=== PATIENT | male | born 1945 | race Caucasian/White ===

== ENCOUNTER 2018-10-18 08:00 | Outpatient (CLI) | payer MEDICARE ==
[2018-10-18] MEDS ORDERED: GLIPIZIDE10 MG PO (13:06)
[2018-10-18] MEDS ORDERED: BAYER CHEWABLE81 MG PO (13:06)
[2018-10-18] MEDS ORDERED: LIPITOR40 MG PO (13:06)
[2018-10-18] MEDS ORDERED: KEPPRA1000 MG PO (13:06)
[2018-10-18] MEDS ORDERED: NORVASC10 MG PO (13:06)
[2018-10-18] MEDS ORDERED: CLARITIN 10 MG10 MG PO (13:07)
[2018-10-18] MEDS ORDERED: LISINOPRIL20 MG PO (13:07)
[2018-10-18] MEDS ORDERED: LEXAPRO10 MG PO (13:07)
[2018-10-18] MEDS ORDERED: LOPRESSOR25 MG PO (13:08)
[2018-10-18] MEDS ORDERED: GLUCOPHAGE1000 MG PO (13:08)
[2018-10-18] MEDS ORDERED: RANITIDINE HCL150 M1 PO (13:08)
[2018-10-18] MEDS ORDERED: VITAMIN B-121000 MCG PO (13:09)
[2018-10-19] MEDS ORDERED: ROCEPHIN 1 GM/D51 G1 IM (17:27)
[2018-10-21 09:59] VITALS: BMI 33.7
== END 2018-10-19 08:01 | disposition home or self-care (01) ==
LOC: D.OPS 08:00
PROVIDERS: ATTEND Family Medicine
DX: F03.90 Unspecified dementia, unspecified severity, without behavioral disturbance, psychotic disturbance, mood disturbance, and anxiety (principal); E86.0 Dehydration

== ENCOUNTER 2018-10-18 12:51 | Inpatient (IN) | payer MEDICARE ==
[~2018-10-18] VITALS: Ht 157.5 cm; Wt 84.1 kg
[2018-10-18] MEDS ORDERED: BAYER CHEWABLE81 MG PO (13:06)
[2018-10-18] MEDS ORDERED: GLIPIZIDE10 MG PO (13:06)
[2018-10-18] MEDS ORDERED: NORVASC10 MG PO (13:06)
[2018-10-18] MEDS ORDERED: KEPPRA1000 MG PO (13:06)
[2018-10-18] MEDS ORDERED: LIPITOR40 MG PO (13:06)
[2018-10-18] MEDS ORDERED: LEXAPRO10 MG PO (13:07)
[2018-10-18] MEDS ORDERED: LISINOPRIL20 MG PO (13:07)
[2018-10-18] MEDS ORDERED: CLARITIN 10 MG10 MG PO (13:07)
[2018-10-18] MEDS ORDERED: GLUCOPHAGE1000 MG PO (13:08)
[2018-10-18] MEDS ORDERED: LOPRESSOR25 MG PO (13:08)
[2018-10-18] MEDS ORDERED: RANITIDINE HCL150 M1 PO (13:08)
[2018-10-18] MEDS ORDERED: VITAMIN B-121000 MCG PO (13:09)
[2018-10-18 13:46] LABS: BASOPHILS 0.7 % (0-2); HEMATOCRIT 35.7 % (42.0-54.0); HEMOGLOBIN 11.5 g/dL (13.5-17.5); IMMATURE GRANULOCYTES 0.4 % (0-5); LYMPHOCYTES 38.3 % (15-50); MCH 29.3 pg (26.0-34.0); MCHC 32.2 g/dL (31.0-37.0); MCV 90.8 fL (80.0-100.0); MEAN PLATELET VOLUME 8.8 fL (7.4-10.4); MONOCYTES 9.4 % (2-11); NEUTROPHILS 47.2 % (40-80); RBC 3.93 10x6/uL (4.20-6.10); RDW 14.6 % (11.5-14.5); WBC 5.5 10x3/uL (4.8-10.8)
[2018-10-18 13:49] LABS: PLATELET COUNT 244 10x3/uL (130-400)
[2018-10-18 14:01] LABS: ALBUMIN 2.9 g/dL (3.4-5.0); ANION GAP 17.4 mmol/L (8-16); BILIRUBIN - TOTAL 0.17 mg/dL (0.2-1.3); CALCIUM 8.1 mg/dL (8.5-10.1); CARBON DIOXIDE 24.3 mmol/L (21.0-32.0); CREATININE - SERUM 1.5 mg/dL (0.6-1.3); POTASSIUM - SERUM 4.7 mmol/L (3.5-5.1); PROTEIN - SERUM 7.2 g/dL (6.4-8.2)
[2018-10-18 14:09] LABS: MAGNESIUM - SERUM 1.8 mg/dL (1.8-2.4); T4 THYROXINE 5.9 ug/dL (4.7-13.3); THYROID STIMULATING HORMONE 0.4 uIU/mL (0.36-3.74)
--- NOTE | 2018-10-18 14:10 | NUR ---
PT RESTING IN BED, RESPIRATIONS EVEN AND UNLABORED, NO SIGNS OF DISTRESS, WILL CONTINUE TO MONITOR.
[2018-10-18 14:54] LABS: CHOL - HDL RATIO 2.7 ratio (2.3-4.9); LDL-HDL RATIO 0.4 ratio (1.5-3.5)
--- NOTE | 2018-10-18 15:10 | NUR ---
PT RESTING IN BED, URINE SAMPLE REQUESTE, PT STATES HE CAN NOT ALWAYS GO WHEN HE WANTS TO, ENCOURAGED HIM TO TRY, WILL CONTINUE TO MONITOR.
--- NOTE | 2018-10-18 16:10 | NUR ---
PT ASSISTED TO STAND FOR URINE SAMPLE, WAS ASSISTED BACK TO BED, DENIES NEEDS, WILL CONTINUE TO MONITOR.
--- NOTE | 2018-10-18 17:10 | NUR ---
IV ESTABLISHED, PT CALM AND COOPERATIVE ON ER STRETCHER, DENIES NEEDS, WILL CONTINUE TO MONITOR.
[2018-10-18 17:12] LABS: UDS - AMPHET NEGATIVE QUAL (NEGATIVE); UDS - BARB NEGATIVE QUAL (NEGATIVE); UDS - BENZO NEGATIVE QUAL (NEGATIVE); UDS - COCAINE NEGATIVE QUAL (NEGATIVE); UDS - OPIATE NEGATIVE QUAL (NEGATIVE); UDS - PCP NEGATIVE QUAL (NEGATIVE); UDS - THC NEGATIVE QUAL (NEGATIVE)
[2018-10-18 17:40] LABS: APPEARANCE CLEAR (CLEAR); BILIRUBIN NEGATIVE (NEGATIVE); COLOR YELLOW (YELLOW); GLUCOSE NEGATIVE (NEGATIVE); KETONE NEGATIVE (NEGATIVE); NITRITE POSITIVE (NEGATIVE); PROTEIN TRACE mg/dL (NEGATIVE); UROBILINOGEN NORMAL (NORMAL)
[2018-10-18 17:41] LABS: BACTERIA MODERATE /hpf (NONE SEEN); RED CELLS - URINE 0-5 /hpf (0-5); WHITE CELLS - URINE 25-50 /hpf (0-5)
--- NOTE | 2018-10-18 18:10 | NUR ---
PT RESTING ON ER STRETCHER, RESPIRATIONS EVEN AND UNLABORED, NO SIGNS OF DISTRESS NOTED, WILL CONTINUE TO MONITOR.
--- NOTE | 2018-10-18 19:27 | NUR ---
PT REPORT CALLED TO ANDRY IN ICU - PT GOING TO ROOM 2318
[2018-10-18 20:10] VITALS: BP 156/80
--- NOTE | 2018-10-18 20:45 | NUR ---
PT RECEIVED TO UNIT VIA STRETCHER FROM ED WITH ER NURSE. PT TRANSFERRED TO ICU BED WITHOUT DIFFUCULTY. PT CLOTHES REMOVED AND PLACED IN BAG WITH SHOES AND PLACED IN GOWN. ANSWERS ORIENTATION QUESTIONS APPROPRIATLY WITH CONFUSION NOTED IN FURTHER CONVERSATION, SUCH SAYING THAT THIS IS THE STRANGEST DRUZE AFTER SAYING HE WAS AT [facility]. PT COMPLAINED OF BEING COLD WITH BLANKETS APPLIED AND THERMOSTAT RAISED FOR COMFORT. NO CONCERNS NOTED AT THIS TIME. WILL CONTINUE TO OBSERVE.
[2018-10-18 21:00] VITALS: BP 137/75
[2018-10-18 21:48] VITALS: BP 156/80; Ht 157.5 cm; Wt 84.1 kg
[2018-10-18 22:00] VITALS: BP 142/73
[2018-10-18 23:00] VITALS: BP 143/75
--- NOTE | 2018-10-18 23:54 | NUR ---
PT SPO2% DROPS AT TIMES AND RETURNS TO 90'S. PT SNORES AT TIMES OF DROP. PT PLACED ON N/C 2LPM. WILL CONTINUE TO OBSERVE.
[2018-10-19] VITALS (11 sets, daily range): BP systolic 113–133; BP diastolic 68–81
--- NOTE | 2018-10-19 03:09 | NUR ---
PT RESTING WITH EYES CLOSED AND CHEST RISING. EASILY AROUSED TO VERBAL STIMULI. REASSESSMENT COMPLETED. CALL LIGHT IN REACH. WILL CONTINUE TO OBSERVE.
[2018-10-19 04:55] LABS: ANION GAP 14.8 mmol/L (8-16); CALCIUM 7.4 mg/dL (8.5-10.1); CARBON DIOXIDE 23.1 mmol/L (21.0-32.0)
[2018-10-19 05:07] LABS: CREATININE - SERUM 1.1 mg/dL (0.6-1.3); POTASSIUM - SERUM 3.9 mmol/L (3.5-5.1)
--- NOTE | 2018-10-19 07:00 | NUR ---
PATIENT RESTING IN BED WITH CALL NUNEZ IN REACH. VSS. O2 AT 2 LITERS VIA NC. D5W INFUSING AT 125ML/HR VIA LEFT WRIST PIV. PATIENT WAKES TO VOICE. ORIENTED TO PERSON, YEAR, AND CITY. TURNED PATIENT WITH OFFGOING NURSE TO RIGHT SIDE. NO SKIN BREAK DOWN. SCRATCHES TO LEGS AND SCABS TO ARMS. WILL CONTINUE TO MONITOR.
--- NOTE | 2018-10-19 08:00 | NUR ---
SPOKE TO DR. KRAMER ON PHONE. OBTAINED ORDERS TO RESTART DAILY MEDICATION REGIMIN WHILE IN HOSPITAL.
--- NOTE | 2018-10-19 08:40 | NUR ---
SERVED PATIENT BREAKFAST AND ADMNISTERED MEDICATION. NO SWALLOWING DIFFICULTIES WITH PILLS.
--- NOTE | 2018-10-19 11:43 | NUR ---
PATIENT RESTING IN BED WITH STABLE VS. HAD LARGE INCONTINENT BM. NURSE CLEANED AND CHANGED LINENS. NO COMPLAINTS. WILL CONTINUE TO MONITOR.
--- NOTE | 2018-10-19 12:08 | NUR ---
SERVED LUNCH TRAY. VSS.
--- NOTE | 2018-10-19 15:25 | NUR ---
FAMILY CAME TO SEE PATIENT. SPOKE TO ME ABOUT THEIR REQUEST FOR PATIENT TO GO TO [facility] AFTER DISCHARGE. CORRESPONDENCE COORDINATOR NEHA NOTIFIED.
[2018-10-19] MEDS ORDERED: ROCEPHIN 1 GM/D51 G1 IM (17:27)
--- NOTE | 2018-10-19 17:30 | NUR ---
DR. KRAMER CAME TO SEE PATIENT. NO ADDITIONAL ORDERS GIVEN. WE ARE DISCHARGING FROM ICU AND MOVING TO [facility]. CALLED AND GAVE REPORT TO RECEIVING NURSE.
--- NOTE | 2018-10-19 17:55 | MORECARE ---
CASE MANAGEMENT DISCHARGE SUMMARY PATIENT: BURKE GILL UNIT: [id number] ADM DATE: 10/19/18 AGE: 72 : 47 SEX: M ROOM/BED: D.2312 AUTHOR: ANAHI SALGUERO PHYSICIAN: REFERRING PHYSICIAN: JOHNNIE KRAMER MD DATE OF SERVICE: 10/19/18 Discharge Plan Patient Name: BURKE GILL Facility: [facility]:[place] : 1945 Planned Disposition: Nursing Facility [facility] Anticipated Discharge Date: Discharge Date: Expected LOS: Initial Reviewer: [email or web address] Initial Review Date: 10/18/2018 Generated: 10/19/18 6:55 pm Patient Name: BURKE GILL Page [id number] at 1754 All edits/amendments must be made on the electronic document DICTATION DATE: 10/19/181754 GENETICS NURSE: CIRO 10/19/181754 RPT#: [id number] DC DATE: STATUS: ADM IN [facility] [address] [place] [address] END OF REPORT
--- NOTE | 2018-10-19 18:01 | NUR ---
TRANSFERRED PATIENT TO SNF AND HANDED OFF TO NURSE.
--- NOTE | 2018-10-19 18:02 | MORECARE ---
CASE MANAGEMENT DISCHARGE SUMMARY PATIENT: BURKE GILL UNIT: [id number] ADM DATE: 10/19/18 AGE: 72 : 47 SEX: M ROOM/BED: D.2312 AUTHOR: ANAHI SALGUERO PHYSICIAN: REFERRING PHYSICIAN: JOHNNIE KRAMER MD DATE OF SERVICE: 10/19/18 Discharge Plan Patient Name: BURKE GILL Facility: [facility]:[place] : 1945 Planned Disposition: Nursing Facility [facility] Cert Anticipated Discharge Date: Discharge Date: Expected LOS: Initial Reviewer: [email or web address] Initial Review Date: 10/18/2018 Generated: 10/19/18 7:02 pm DCPIA - Discharge Planning Initial Assessment Updated by [email or web address]: Rox Ruiz on 10/19/18 5:58 pm * Is the patient Alert and Oriented? No * Preadmission Environment Care Home Facility * Facility Name [facility] [phone] * ADLs Partial Dependent * Partial ADLs (Assistance needed) Ambulation Bathing Dressing Eating Medication Management Toileting Transfers * List name and contact numbers for known caregivers / representatives who currently or will assist patient after discharge: BARBARA PASTOR [facility]- [phone] FERNANDO LOMELI [facility] [phone] * Verbal permission to speak to the caregivers and representatives has been obtained from the patient. N/A * Community resources currently utilized None * Additional services required to return to the preadmission environment? No * Can the patient safely return to the preadmission environment? Yes * Has this patient been hospitalized within the prior 30 days at any hospital? Yes Last DP export: 10/19/18 4:55 pm Patient Name: BURKE GILL Page [id number] at 1802 All edits/amendments must be made on the electronic document DICTATION DATE: 10/19/181801 AUTOMOTIVE MANAGER: CIRO 10/19/181801 RPT#: [id number] DC DATE: STATUS: ADM IN [facility] [address] [place] [address] END OF REPORT
--- NOTE | 2018-10-19 18:15 | MORECARE ---
CASE MANAGEMENT DISCHARGE SUMMARY PATIENT: BURKE GILL UNIT: [id number] ADM DATE: 10/19/18 AGE: 72 : 47 SEX: M ROOM/BED: D.2312 AUTHOR: NOEMY,DOC PHYSICIAN: REFERRING PHYSICIAN: JOHNNIE KRAMER MD DATE OF SERVICE: 10/19/18 Discharge Plan Patient Name: BURKE GILL Facility: [facility]:[place] : 1945 Planned Disposition: Nursing Facility [facility] Cert Anticipated Discharge Date: Discharge Date: 10/19/2018 Expected LOS: Initial Reviewer: [email or web address] Initial Review Date: 10/18/2018 Generated: 10/19/18 7:15 pm DCP- Discharge Planning Updated by [email or web address]: Rox Ruiz on 10/19/18 5:[address] Patient Name: BURKE GILL Admission Status: ER Accout number: [id number] Admission Date: 10-19-2018 : 1945 Admission Diagnosis: Attending: JOHNNIE KRAMER Current LOS: 1 Anticipated DC Date: Planned Disposition: Nursing Facility [facility] Cert Primary Insurance: MEDICARE A & B Discharge Planning Comments: CM received call from Barbara Pastor patients POA [phone]. She stated that the patient will not be able to return to [facility] when discharged. Barbara stated that the family was checking into other facilities for pants busheler care. CM called [facility] to verify information. CM spoke with Cara @ [facility] she stated that patient was refusing to do therapy and they didn't have any long-term beds available. CM attempted to get history from Cara she stated that he has only been with them since 10/08/18 and had came to them post admission from [facility]. CM awaiting psych consult to fill out [facility] paperwork. CM will work on placement for long-term NH placement. CM will continue to follow and assist as needed with discharge planning / needs. Manager Universal: Rox Ruiz DCPIA - Discharge Planning Initial Assessment Updated by [email or web address]: Rox Ruiz on 10/19/18 5:58 pm * Is the patient Alert and Oriented? No * Preadmission Environment Snf Facility * Facility Name [facility] [phone] * ADLs Partial Dependent * Partial ADLs (Assistance needed) Ambulation Bathing Dressing Eating Medication Management Toileting Transfers * List name and contact numbers for known caregivers / representatives who currently or will assist patient after discharge: BARBARA PASTOR - POA- [phone] FERNANDO LOMELI - [facility]- [phone] * Verbal permission to speak to the caregivers and representatives has been obtained from the patient. N/A * Community resources currently utilized None * Additional services required to return to the preadmission environment? No * Can the patient safely return to the preadmission environment? Yes * Has this patient been hospitalized within the prior 30 days at any hospital? Yes Last DP export: 10/19/18 5:02 pm Patient Name: BURKE GILL Page [phone] at 1815 All edits/amendments must be made on the electronic document DICTATION DATE: 10/19/181813 PRINCIPAL SOFTWARE ENGINEER: CIRO 10/19/181813 RPT#: [id number] DC DATE:10/19/18 STATUS: DIS IN [facility] [address] [place] [address] END OF REPORT
--- NOTE | 2018-10-19 18:29 | MORECARE ---
CASE MANAGEMENT DISCHARGE SUMMARY PATIENT: BURKE GILL UNIT: [id number] ADM DATE: 10/19/18 AGE: 72 : 47 SEX: M ROOM/BED: D.2312 AUTHOR: NOEMY,DOC PHYSICIAN: REFERRING PHYSICIAN: JOHNNIE KRAMER MD DATE OF SERVICE: 10/19/18 Discharge Plan Patient Name: BURKE GILL Facility: [facility]:[place] : 1945 Planned Disposition: Nursing Facility [facility] Cert Anticipated Discharge Date: Discharge Date: 10/19/2018 Expected LOS: Initial Reviewer: [email or web address] Initial Review Date: 10/18/2018 Generated: 10/19/18 7:29 pm Comments DCP- Discharge Planning Updated by [email or web address]: Rox Ruiz on 10/19/18 5:[address] Patient Name: BURKE GILL Admission Status: ER Accout number: [id number] Admission Date: 10-19-2018 : 1945 Admission Diagnosis: Attending: JOHNNIE KRAMER Current LOS: 1 Anticipated DC Date: Planned Disposition: Nursing Facility [facility] Cert Primary Insurance: MEDICARE A & B Discharge Planning Comments: CM received call from Barbara Pastor patients POA [phone]. She stated that the patient will not be able to return to [facility] when discharged. Barbara stated that the family was checking into other facilities for terminal operator care. CM called [facility] to verify information. CM spoke with Cara @ [facility] she stated that patient was refusing to do therapy and they didn't have any long-term beds available. CM attempted to get history from Cara she stated that he has only been with them since 10/08/18 and had came to them post admission from [facility]. CM awaiting psych consult to fill out [facility] paperwork. CM will work on placement for long-term NH placement. CM will continue to follow and assist as needed with discharge planning / needs. Radiation Therapy Technologist: Rox Ruiz DCPIA - Discharge Planning Initial Assessment Updated by [email or web address]: Rox Ruiz on 10/19/18 5:58 pm * Is the patient Alert and Oriented? No * Preadmission Environment Longterm Facility * Facility Name [facility] [phone] * ADLs Partial Dependent * Partial ADLs (Assistance needed) Ambulation Bathing Dressing Eating Medication Management Toileting Transfers * List name and contact numbers for known caregivers / representatives who currently or will assist patient after discharge: BARBARA PASTOR - POA- [phone] FERNANDO LOMELI - [facility]- [phone] * Verbal permission to speak to the caregivers and representatives has been obtained from the patient. N/A * Community resources currently utilized None * Additional services required to return to the preadmission environment? No * Can the patient safely return to the preadmission environment? Yes * Has this patient been hospitalized within the prior 30 days at any hospital? Yes Last DP export: 10/19/18 5:15 pm Patient Name: BURKE GILL Page 48199 at 1829 All edits/amendments must be made on the electronic document DICTATION DATE: 10/19/181827 DIGESTER: CIRO 10/19/181827 RPT#: [id number] DC DATE:10/19/18 STATUS: DIS IN [facility] [address] [place] [address] END OF REPORT
--- NOTE | 2018-10-20 09:49 | MORECARE ---
CASE MANAGEMENT DISCHARGE SUMMARY PATIENT: BURKE GILL UNIT: [id number] ADM DATE: 10/19/18 AGE: 72 : 47 SEX: M ROOM/BED: D.2312 AUTHOR: NOEMY,DOC PHYSICIAN: REFERRING PHYSICIAN: JOHNNIE KRAMER MD DATE OF SERVICE: 10/20/18 Discharge Plan Patient Name: BURKE GILL Facility: [facility]:[place] : 1945 Planned Disposition: Nursing Facility [facility] Cert Anticipated Discharge Date: Discharge Date: 10/19/2018 Expected LOS: Initial Reviewer: [email or web address] Initial Review Date: 10/18/2018 Generated: 10/20/18 10:49 am Comments DCP- Discharge Planning Updated by [email or web address]: Rox Ruiz on 10/19/18 5:[address] Patient Name: BURKE GILL Admission Status: ER Accout number: [id number] Admission Date: 10-19-2018 : 1945 Admission Diagnosis: Attending: JOHNNIE KRAMER Current LOS: 1 Anticipated DC Date: Planned Disposition: Nursing Facility [facility] Cert Primary Insurance: MEDICARE A & B Discharge Planning Comments: CM received call from Barbara Pastor patients POA [phone]. She stated that the patient will not be able to return to [facility] when discharged. Barbara stated that the family was checking into other facilities for ad terminal makeup operator care. CM called [facility] to verify information. CM spoke with Cara @ [facility] she stated that patient was refusing to do therapy and they didn't have any long-term beds available. CM attempted to get history from Cara she stated that he has only been with them since 10/08/18 and had came to them post admission from [facility]. CM awaiting psych consult to fill out [facility] paperwork. CM will work on placement for long-term NH placement. CM will continue to follow and assist as needed with discharge planning / needs. Parks Recreation Director: Rox Ruiz DCPIA - Discharge Planning Initial Assessment Updated by [email or web address]: Rox Ruiz on 10/19/18 5:58 pm * Is the patient Alert and Oriented? No * Preadmission Environment Retirement Facility * Facility Name [facility] [phone] * ADLs Partial Dependent * Partial ADLs (Assistance needed) Ambulation Bathing Dressing Eating Medication Management Toileting Transfers * List name and contact numbers for known caregivers / representatives who currently or will assist patient after discharge: BARBARA PASTOR - POA- [phone] FERNANDO LOMELI - [facility]- [phone] * Verbal permission to speak to the caregivers and representatives has been obtained from the patient. N/A * Community resources currently utilized None * Additional services required to return to the preadmission environment? No * Can the patient safely return to the preadmission environment? Yes * Has this patient been hospitalized within the prior 30 days at any hospital? Yes Last DP export: 10/19/18 5:29 pm Patient Name: BURKE GILL Page 31696 at 0949 All edits/amendments must be made on the electronic document DICTATION DATE: 10/20/18948 REGIONAL CONTROLLER: CIRO 10/20/18948 RPT#: [id number] DC DATE:10/19/18 STATUS: DIS IN [facility] [address] [place] [address] END OF REPORT
== END 2018-10-19 18:01 | disposition short-term general hospital (02) | DRG 690 ==
LOC: D.ER 12:51 → D.EDHOLD 17:36 → D.ICU 17:36 → OBSVTIME 17:45 → D.ICU 18:27
PROVIDERS: Emergency Medicine; ADMIT Family Medicine; ATTEND Family Medicine
DX: N39.0 Urinary tract infection, site not specified (principal); R45.851 Suicidal ideations; I69.354 Hemiplegia and hemiparesis following cerebral infarction affecting left non-dominant side; E86.0 Dehydration; D64.9 Anemia, unspecified; I10 Essential (primary) hypertension; E11.9 Type 2 diabetes mellitus without complications; E78.5 Hyperlipidemia, unspecified; I25.10 Atherosclerotic heart disease of native coronary artery without angina pectoris; E66.9 Obesity, unspecified; G40.909 Epilepsy, unspecified, not intractable, without status epilepticus; K21.9 Gastro-esophageal reflux disease without esophagitis; E53.8 Deficiency of other specified B group vitamins; F32.9 Major depressive disorder, single episode, unspecified; F03.90 Unspecified dementia, unspecified severity, without behavioral disturbance, psychotic disturbance, mood disturbance, and anxiety; E73.9 Lactose intolerance, unspecified; N40.0 Benign prostatic hyperplasia without lower urinary tract symptoms

== ENCOUNTER → 2018-10-19 17:53 | Outpatient (CLI) | payer MEDICARE ==
[~2018-10-19 17:53] MED LIST: ALBUTEROL1.25 MG/3 UPD; BAYER CHEWABLE81 MG PO; CLARITIN 10 MG10 MG PO; GLIPIZIDE10 MG PO; GLUCOPHAGE1000 MG PO; KEPPRA1000 MG PO; LEXAPRO10 MG PO; LEXAPRO20 MG PO; LIPITOR40 MG PO; LISINOPRIL20 MG PO; LOPRESSOR25 MG PO; NAMENDA5 MG PO; NORVASC10 MG PO; RANITIDINE HCL150 M1 PO; ROCEPHIN 1 GM/D51 G1 IM; TAMIFLU75 MG PO; VITAMIN B-121000 MCG PO
[2018-10-21 09:59] VITALS: BMI 33.7
== END | disposition other institution (70) ==
LOC: D.OPS 10-18 12:51
PROVIDERS: ATTEND Family Medicine
DX: F03.90 Unspecified dementia, unspecified severity, without behavioral disturbance, psychotic disturbance, mood disturbance, and anxiety (principal); E86.0 Dehydration

== ENCOUNTER 2018-10-19 20:00 | Inpatient (IN) | payer MEDICARE ==
[~2018-10-19] VITALS: Ht 167.6 cm; Wt 83.6 kg
[~2018-10-19 20:00] MED LIST changes: -ALBUTEROL1.25 MG/3 UPD; -LEXAPRO20 MG PO; -NAMENDA5 MG PO; -TAMIFLU75 MG PO
--- NOTE | 2018-10-20 00:47 | NUR ---
RECEIVED IN PATIENT ROOM. RESTING IN BED WITH EYES CLOSED. RESPONDS TO VOICE. CALM WITH CARE AND ASSESSMENT. DENIES THOUGHTS OF SELF HARM. REDIRECT AND REORIENT NEEDED. RESTING IN BED WITH EYES CLOSED AT THIS TIME. CONTINUE PLAN OF CARE.
[2018-10-20 06:10] VITALS: BP 116/65; BMI 33.9
--- NOTE | 2018-10-20 07:30 | NUR ---
REC'D PT IN BED RESTING. RESPONDS TO VERBAL STIMULI. ALERT AND ORIENTED X 2. CALM AND COOPERATIVE WITH ASSESSMENT. PRESCRIBED MEDS PROVIDED. MED COMPLIANT. FALL PRECAUTIONS IN PLACE. PT DENIES ANY THOUGHTS OF SELF HARM. WILL CONTINUE TO MONITOR Q 15 MINUTES FOR SAFETY. WILL CPOC.
[2018-10-20 07:51] LABS: BASOPHILS 0.5 % (0-2); HEMATOCRIT 35.9 % (42.0-54.0); HEMOGLOBIN 11.5 g/dL (13.5-17.5); IMMATURE GRANULOCYTES 0.3 % (0-5); LYMPHOCYTES 27.2 % (15-50); MCV 90.4 fL (80.0-100.0); MEAN PLATELET VOLUME 8.9 fL (7.4-10.4); MONOCYTES 10.5 % (2-11); NEUTROPHILS 57.5 % (40-80); PLATELET COUNT 242 10x3/uL (130-400); RBC 3.97 10x6/uL (4.20-6.10); RDW 14.3 % (11.5-14.5)
[2018-10-20 08:07] LABS: ALBUMIN 2.8 g/dL (3.4-5.0); BILIRUBIN - TOTAL 0.23 mg/dL (0.2-1.3); CALCIUM 7.7 mg/dL (8.5-10.1); CARBON DIOXIDE 23.7 mmol/L (21.0-32.0); CHOL - HDL RATIO 2.4 ratio (2.3-4.9); CREATININE - SERUM 1.1 mg/dL (0.6-1.3); LDL-HDL RATIO 0.6 ratio (1.5-3.5); PROTEIN - SERUM 7.2 g/dL (6.4-8.2); THYROID STIMULATING HORMONE 0.69 uIU/mL (0.36-3.74)
[2018-10-20 08:09] LABS: ANION GAP 15.8 mmol/L (8-16); POTASSIUM - SERUM 4.5 mmol/L (3.5-5.1)
[2018-10-20 08:23] VITALS: BP 130/75
[2018-10-20 13:58] VITALS: BMI 33.8
[2018-10-20 19:50] VITALS: BP 127/82
--- NOTE | 2018-10-21 00:47 | NUR ---
B) Patient is alert and oriented to person and place, follows instruction, I)Administered scheduled medications as ordered, monitored FSBS, assisted with needs, R) Medication compliant, cooperative P) Continue plan of care.
[2018-10-21 07:30] LABS: RAPID PLASMA REAGIN Non Reactive (Non Reactive); VITAMIN D 25 HYDROXY 25.8 ng/mL (30.0-100.0)
[2018-10-21 09:20] LABS: FOLATE (FOLIC ACID) - SERUM 19.8 ng/mL (>3.0)
[2018-10-21 09:59] VITALS: Ht 167.6 cm; Wt 83.6 kg
--- NOTE | 2018-10-21 13:04 | PSY ---
PATIENT NAME:BURKE GILL MEDICAL RECORD: [id number] : [birth year] LOCATION:[facility] ADMISSION DATE: 10/19/18 ACCOUNT: [id number] PSYCHIATRIC EVALUATION DATE OF EVALUATION: 10/20/18 IDENTIFYING DATA: The patient is 72 years old and he is admitted to the hospital on a voluntary basis. CHIEF COMPLAINT: Suicidal thoughts. HISTORY OF PRESENT ILLNESS: The patient clearly has a history of dementia and has been admitted to the [facility] for rehabilitative services. He apparently had a stroke or intraparenchymal bleed without a midline shift about 6 weeks ago. He has had two cerebrovascular events and does have some left-sided weakness. While at the half-way, he told his physical therapist that he wanted to kill himself. He repeated those thoughts when brought to the hospital, but now says he does not want to kill himself. He is endorsing numerous neurovegetative depressive symptoms. He also has clear evidence of some confusion. PAST MEDICAL HISTORY: Significant for stroke, diabetes, hypertension, coronary artery disease, and hyperlipidemia. PAST PSYCHIATRIC HISTORY: Significant for depression and a previous suicide attempt 5 years ago when he held a knife to his throat and threatened to cut his throat while at some sort of a [employer] democrat. He had been drinking at that time. ALLERGIES: No known drug allergies. CURRENT MEDICATIONS: Include Norvasc, aspirin, Lipitor, Glucotrol, Keppra, Lexapro, lisinopril, Claritin, Glucophage, Lopressor, ranitidine, and vitamin B12. FAMILY HISTORY: Noncontributory. SOCIAL HISTORY: The patient is . He does have adult children who live out of state. He did graduate from high school and had several episodes of vocational training in which he partially completed some of the training. He is a nonsmoker. He has not drank any in recent months or years and has never been a recreational drug user. 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 MENTAL STATUS EXAMINATION: The patient is awake, alert, and oriented to person and place, but only partially to time and situation. His mood is depressed. His affect is constricted. Thought processes are circumstantial. Memory, concentration, and abstraction abilities are moderately impaired and he denies any active intent to harm himself or others as well as active psychotic symptoms. ASSETS: Stable living environment. LIABILITIES: Limited insight. DIAGNOSTIC IMPRESSION: AXIS I: Vascular dementia and major depression, moderate severity without psychotic features. AXIS II: Deferred. AXIS III: History of stroke, seizure disorder, diabetes, hypertension, hyperlipidemia, diabetes, anemia, and benign prostatic hypertrophy. AXIS IV: Moderate. AXIS V: Global assessment of functioning is 35. PLAN: At this time, the patient is admitted to the hospital secondary to confusion and depressive symptoms with suicidal statements. He will be comprehensively evaluated from both medical, psychological, and social standpoint. He will be treated with both mood stabilizing and memory enhancing medications. His long-term prognosis is guarded. TRANSINT:[id number] Voice Confirmation ID: [id number] DOCUMENT ID: [id number] VALENTE OLIVARES MD at 1304 CC: [id number] DICTATION DATE: 10/20/18 1529 BLOCK AND CASE MAKER: 10/20/181957 [facility] IN [place] [address] [place] [address]
--- NOTE | 2018-10-21 16:43 | NUR ---
IS ORIENTED WITH SOME CONFUSION PRESENT.DENIES WANTING TO HARM SELF NOW.STATES' in the last 10 years we had a democrat at my house and they were not paying any attention to me and so i went into the kitchen and got a knife and threatened to kill myself".compliant with staff with staff and meds.will continue with plan of care,monitor for changes and safety.
[2018-10-21 19:56] VITALS: BP 126/57
--- NOTE | 2018-10-22 04:27 | NUR ---
B) Patient is alert and oriented to person, calm and cooperative this shift, I) Administered scheduled medications as ordered, monitored for safety, R) Mediation compliant, pleasant and friendly toward staff, P) Continue plan of care.
--- NOTE | 2018-10-22 10:27 | NUR ---
RECEIVED PATIENT IN DINING ROOM FOR B'FAST, ALERT, CALM, COOPERATIVE, QUIET. MEDS ADMIN PER ORDERS WITH COMPLETE MED COMPLIANCE NOTED. COOPERATIVE WITH GROUP AND STAFF REQUESTS. CONT POC INCLUDING MEDS AND GROUP THERAPY DIRECTED
[2018-10-22 10:37] VITALS: BP 132/75
--- NOTE | 2018-10-22 11:00 | NUR ---
The patient's POA called and asked about how he is doing. She also stated "He is supposed to be going in to plate inspector care and the social services counselor is supposed to call me, but I have been in and out of cell phone service areas, but if anyone needs me, please call." Let the POA know that the patient is quiet he did get agitated with staff because he does not like being asked "Where are you going?" Explained to the POA that we have them in our view so that no one falls. She verbalized understanding.
--- NOTE | 2018-10-22 13:49 | PN ---
PATIENT:BURKE GILL MEDICAL RECORD: [id number] LOCATION:[facility] ADMISSION DATE: 10/19/18 PROGRESS NOTE DATE OF SERVICE: 10/21/2018 SUBJECTIVE: The patient's case was discussed with staff. He has no new complaint. OBJECTIVE: The patient denies intent to harm himself or others. He generally tolerates his medicines well. Eye contact is fair. Concentration is fair. ASSESSMENT: No change in diagnoses. PLAN: Current medicines have been reviewed and will be maintained. Long-term prognosis is guarded. I am going to start him on Namenda for its memory enhancing properties. TRANSINT:[id number] Voice Confirmation ID: [id number] DOCUMENT ID: [id number] VALENTE OLIVARES MD at 1349 CC: [id number] DICTATION DATE: 10/21/18 1604 SUPERVISOR ROSE GRADING: 10/21/18 2322 ADM IN [place] [id number] [place] [id number]
[2018-10-22 20:15] VITALS: BP 140/79
--- NOTE | 2018-10-22 20:56 | NUR ---
PATIENT HAS A FLAT AFFECT, KEEPS TO HIMSELF, DENIES S/I. COMPLIANT WITH MEDS, NO ADVERSE REACTION NOTED. ABLE TO MAKE NEEDS KNOWN, WILL FOLLOW POC
--- NOTE | 2018-10-23 07:30 | NUR ---
PT IS ALERT AND ORIENTED TO PERSON AND PLACE. CALM AND COOPERATIVE WITH ASSESSMENT. NO SI NOTED OR VOICED. PT IS GUARDED AT TIMES. PRESCRIBED MEDS PROVIDED. MED COMPLIANT. FALL PRECAUTIONS IN PLACE. REDIRECT AND REORIENT NEEDED. WILL CONTINUE TO MONITOR Q 15 MINUTES FOR SAFETY. WILL CPOC.
[2018-10-23 08:12] VITALS: BP 118/76
--- NOTE | 2018-10-23 08:39 | PN ---
PATIENT:BURKE GILL MEDICAL RECORD: [id number] LOCATION:[facility] ADMISSION DATE: 10/19/18 PROGRESS NOTE DATE OF SERVICE: 10/22/2018 SUBJECTIVE: The patient's case was discussed with staff. He has no new complaint. OBJECTIVE: The patient is in good behavioral control. He has no thoughts of harming himself or others. He is going to be referred to a local longterm. His long-term prognosis is guarded. TRANSINT:[id number] Voice Confirmation ID: [id number] DOCUMENT ID: [id number] VLAENTE OLIVARES MD at 0839 CC: [id number] DICTATION DATE: 10/22/18 1555 SHEET ROCK INSTALLER: 10/22/18 2217 ADM IN [place] [id number] [place] [id number]
--- NOTE | 2018-10-23 19:58 | NUR ---
PATIENT IS QUIET, FLAT, APPEARS SADDENED, VERY LITTLE MOTIVATION, ENCOURAGING WORDS ARE GIVEN TO PATIENT, COMPLIANT WITH MEDS, NO ADVERSE REACTION NOTED. WILL FOLLOW POC
[2018-10-23 20:04] VITALS: BP 137/78
--- NOTE | 2018-10-24 07:45 | NUR ---
REC'D PT SITTING IN W/C IN HALLWAY BY NURSES STATION WITH PEERS. PT DENIES ANY FEELINGS OR THOUGHTS OF SELF HARM AT THIS TIMES. PT GETS UPSET EASILY WHEN HAS INCONT. EPISODES AT TIMES. EXPLAINED TO PT ITS OKAY THAT IS WHAT THE STAFF IS HERE FOR TO ASSIST HIM. CALM AND COOPERATIVE WITH ASSESSMENT. REDIRECT AND REORIENT NEEDED. PRESCRIBED MEDS PROVIDED. MED COMPLIANT. FALL PRECAUTIONS IN PLACE. WILL CONTINUE TO MONITOR Q 15 MINUTES FOR SAFETY. WILL CPOC.
[2018-10-24 08:00] VITALS: BP 129/75
--- NOTE | 2018-10-24 11:37 | PN ---
PATIENT:BURKE GILL MEDICAL RECORD: [id number] LOCATION:[facility] ADMISSION DATE: 10/19/18 PROGRESS NOTE DATE OF SERVICE: 10/23/2018 SUBJECTIVE: The patient's case was discussed with staff. He has no new complaint. OBJECTIVE: The patient is in good behavioral control with poor insight about his condition. He does tolerate his medicines well. ASSESSMENT: No change in diagnoses. PLAN: Supportive and educational interventions were made. Long-term prognosis is guarded. TRANSINT:[id number] Voice Confirmation ID: [id number] DOCUMENT ID: [id number] VALENTE OLIVARES MD at 1137 CC: [id number] DICTATION DATE: 10/23/18 0846 CIGARETTE SELLER: 10/23/18 0859 ADM IN [place] [id number]
[2018-10-24 19:28] VITALS: BP 124/68
--- NOTE | 2018-10-24 23:01 | NUR ---
RECEIVED IN DAYROOM. SETTING IN A CHAIR WITH PEERS BY HIS SIDE, SOCIALIZING AT TIMES. CALM AND COOPERATIVE WITH CARE AND ASSESSMENT. DENIES THOUGHTS OF SELF HARM. ENCOURAGE TO EXPRESS NEEDS. CONTINUES TO RELAX IN CHAIR. CONTINUE PLAN OF CARE
--- NOTE | 2018-10-25 07:30 | NUR ---
REC'D PT IN HALLWAY SITTING IN W/C. PT IS CALM AND COOPERATIVE WITH ASSESSMENT. PT DENIES ANY THOUGHTS OR FEELINGS OF SELF HARM AT THIS TIME. REDIRECT AND REORIENT NEEDED. PRESCRIBED MEDS PROVIDED. MED COMPLIANT. FALL PRECAUTIONS IN PLACE. WILL CONTINUE TO MONITOR Q 15 MINUTES FOR SAFETY. WILL CPOC.
--- NOTE | 2018-10-25 13:45 | NUR ---
Nutrition Follow Up: Chart reviewed Diet: ADA PO Intake: 69% meal avg BM: 10/25/18 Meds and labs reviewed Rec continue current diet. RD following.
--- NOTE | 2018-10-25 15:58 | PN ---
PATIENT:BURKE GILL MEDICAL RECORD: [id number] LOCATION:[facility] ADMISSION DATE: 10/19/18 PROGRESS NOTE DATE OF SERVICE: 10/24/2018 SUBJECTIVE: The patient's case was discussed with staff. He has no new complaint. OBJECTIVE: The patient is in good behavioral control with poor insight about his condition. He generally tolerates his medicines well. ASSESSMENT: 1. Vascular dementia. 2. Major depression. PLAN: The patient's Lexapro is going to be increased to 20 mg daily. His long-term prognosis is guarded. It is clear that he is going to require 12-ggpy-e-day supervision. TRANSINT:[id number] Voice Confirmation ID: [id number] DOCUMENT ID: [id number] VALENTE OLIVARES MD at 1558 CC: [id number] DICTATION DATE: 10/24/18 1156 KITCHEN PORTER: 10/24/18 1244 ADM IN [place] [id number] [place] [address]
[2018-10-25 20:54] VITALS: BP 142/78
--- NOTE | 2018-10-25 22:01 | NUR ---
RECEIVED IN DAYROOM. SITTING QUIETLY IN CHAIR AND WATCHING TV. CALM AND COOPERATIVE WITH CARE AND ASSESSMENT. DENIES THOUGHTS OF SELF HARM. REDIRECT AND REORIENT NEEDED. GETTING READY FOR BED AT THIS TIME. CONTINUE PLAN OF CARE.
[2018-10-26 08:30] VITALS: BP 134/79
--- NOTE | 2018-10-26 10:00 | NUR ---
RECEIVED PATIENT IN DINING ROOM FOR B'FAST, ALERT, CALM, COOPERATIVE WITH CARE, NO AGGRESSION NOTED. MEDS ADMIN PER ORDERS WITH COMPLETE MED COMPLIANCE NOTED. COOPERATIVE WITH GROUP ACTIVITIES AND CARE. CONT POC INCLUDING MEDS AND GROUP THEAPY DIRECTED.
--- NOTE | 2018-10-26 12:58 | PN ---
PATIENT:BURKE GILL MEDICAL RECORD: [id number] LOCATION:[facility] ADMISSION DATE: 10/19/18 PROGRESS NOTE DATE OF SERVICE: 10/25/2018 SUBJECTIVE: The patient's case was discussed with staff. He has no new complaint. OBJECTIVE: The patient denies intent to harm himself or others. He generally tolerates his medicines well. Eye contact is fair. ASSESSMENT: No change in diagnoses. PLAN: Brief supportive and educational interventions were made. The patient will be maintained on current medicines. TRANSINT:[id number] Voice Confirmation ID: [id number] DOCUMENT ID: [id number] VALENTE OLIVARES MD at 1258 CC: [id number] DICTATION DATE: 10/25/18 1630 TRACK INSPECTOR: 10/25/18 1901 ADM IN [facility] [address] [place] [address]
--- NOTE | 2018-10-26 16:20 | NUR ---
SUPPER EATEN, 50 % CONSUMED. FSBS 98.
--- NOTE | 2018-10-26 17:08 | NUR ---
FSBS CHECKED. FSBS 46, PEANUT BUTTER, CRACKERS, AND MILK ADMIN. PT ALERT, NO DIFFICULTIES CHEWING AND SWALLOWING. WILL RE-CHECK.
--- NOTE | 2018-10-26 17:40 | NUR ---
FSBS 59 - ORANGE JUICE GIVEN. WILL FOLLOWUP
[2018-10-26 19:58] VITALS: BP 129/76
--- NOTE | 2018-10-27 04:37 | NUR ---
B) Patient is alert and oriented to person and place, calm and cooperative this shift, I) Administered scheduled medications as ordered, monitored for safety and for needs, R) Medication compliant, resting quietly in his bed, P) Continue plan of care.
[2018-10-27 08:30] VITALS: BP 149/79
--- NOTE | 2018-10-27 10:00 | NUR ---
RECEIVED PATIENT IN DINING ROOM FOR B'FAST, ALERT, CALM, COOPERATIVE, NO BEHAVIORAL ISSUES NOTED. MEDS ADMIN PER ORDERS, NO PROBLEM SWALLOWING MEDS. COOOPERATIVE WITH GROUP AND STAFF REQUESTS. CONT POC INCLUDING MEDS AND GROUP THERAPY DIRECTED.
--- NOTE | 2018-10-27 16:32 | PN ---
PATIENT:BURKE GILL MEDICAL RECORD: [id number] LOCATION:[facility] ADMISSION DATE: 10/19/18 PROGRESS NOTE DATE OF SERVICE: 10/26/2018 SUBJECTIVE: The patient's case was discussed with staff. He has no new complaint. OBJECTIVE: The patient denies intent to harm himself or others. He generally tolerates his medicines well. He is not eating very well, but cannot explain this to me. He is actually overweight, so it is nothing critical, but I am still distressed that he is eating virtually nothing. ASSESSMENT: 1. Vascular dementia. 2. Major depression. PLAN: The patient is going to be started on Megace to assist with appetite stimulation. His long-term prognosis is guarded. TRANSINT:[id number] Voice Confirmation ID: [id number] DOCUMENT ID: [id number] VALENTE OLIVARES MD at 1632 CC: [id number] DICTATION DATE: 10/26/182001 SUPERVISOR POULTRY FARM: 10/27/18 0106 ADM IN [place] [id number] [place] [id number]
[2018-10-27 20:20] VITALS: BP 128/68
--- NOTE | 2018-10-28 00:33 | NUR ---
RECEIVED IN DAYROOM. SITTING IN CHAIR AND REPEATEDLY COMPLAINING ABOUT BEING HERE. CALM AND COOPERATIVE WITH CARE AND ASSESSMENT. DENIES THOUGHTS OF SELF HARM. REDIRECT AND REORIENT NEEDED. RESTING IN BED WITH EYES CLOSED AT THIS TIME. CONTINUE PLAN OF CARE.
[2018-10-28 10:20] VITALS: BP 114/68
--- NOTE | 2018-10-28 11:25 | NUR ---
B) The patient is awake and he is pleasant. He self propels in his w/c. He has not been aggressive. I) Provide prescribed meds. R) The patient is compliant with meds. P) Continue POC.
--- NOTE | 2018-10-28 15:31 | PN ---
PATIENT:BURKE GILL MEDICAL RECORD: [id number] LOCATION:[facility] ADMISSION DATE: 10/19/18 PROGRESS NOTE DATE OF SERVICE: 10/27/2018 SUBJECTIVE: The patient's case was discussed with staff. He has no new complaint. OBJECTIVE: The patient denies intent to harm himself or others. He is tolerating his medicines well. ASSESSMENT: 1. Vascular dementia. 2. Major depression. PLAN: The patient will have his Namenda increased to 5 mg twice daily. Namenda is being used to treat his underlying cognitive impairment. He will be monitored for clinical changes associated with its use. TRANSINT:[id number] Voice Confirmation ID: [id number] DOCUMENT ID: [id number] VALENTE OLIVARES MD at 1531 CC: [id number] DICTATION DATE: 10/27/181707 MEDICAL RESEARCH ASSOCIATE: 10/27/181951 ADM IN [facility] [address] [place] [address]
--- NOTE | 2018-10-28 17:10 | NUR ---
FSBS 45.DIET SERVED.ENCOURAGED TO EAT IT ALL.METFORMIN AND GLIPIZIDE HELD.
--- NOTE | 2018-10-28 18:10 | NUR ---
FSBS 76.P-NUT BUTTER,GRAHAMN CRACKER AND APPLE JUICE GIVEN.HAD CONSUMED 100% OF DINNER.
[2018-10-28 19:42] VITALS: BP 125/70
--- NOTE | 2018-10-29 03:59 | NUR ---
B) Patient is alert and oriented to person, patient states that he does not understand why he is here, I) Administered scheduled medications as ordered, monitored for safety, monitored FSBS R) Mediation compliant, social with peers, P) Continue plan of care.
[2018-10-29 09:25] VITALS: BP 140/93
--- NOTE | 2018-10-29 12:31 | PN ---
PATIENT:BURKE GILL MEDICAL RECORD: [id number] LOCATION:[facility] ADMISSION DATE: 10/19/18 PROGRESS NOTE DATE OF SERVICE: 10/28/2018 SUBJECTIVE: The patient's case was discussed with staff. He has no new complaint. OBJECTIVE: The patient is in good behavioral control. He has limited insight about his condition. He does tolerate his medicines well. His mood is fairly depressed, but I do not think he has had an opportunity for the Lexapro to have much of an effect. ASSESSMENT: 1. Vascular dementia. 2. Major depression. PLAN: The patient will be maintained on current medicines, which I have reviewed. His long-term prognosis is guarded. He does need 22-jfcg-i-day supervision. I have spoken with him about this and he is agreeable to it. TRANSINT:[id number] Voice Confirmation ID: [id number] DOCUMENT ID: [id number] VALENTE OLIVARES MD at 1231 CC: [id number] DICTATION DATE: 10/28/18 1632 BOOM TRUCK DRIVER: 10/28/18 2348 ADM IN [facility] [address] [place] [address]
--- NOTE | 2018-10-29 16:39 | NUR ---
B) The patient is calm and he has been quiet. He is coughing from time to time and he has slept a lot today. He says he feels fine though. He self propels in a w/c and he can transfer alone. He gets irritable when anyone tries to help him. He has been exposed to the flu and his medical Dr. Salgado prescribed him Tamiflu prophylactically. I) Provide prescribed meds. R) The patient is compliant with meds. P) Continue POC.
[2018-10-29 20:06] VITALS: BP 124/67
--- NOTE | 2018-10-29 23:17 | NUR ---
PATIENT IS QUIET, FLAT AFFECT, INTERACTS WITH OTHERS AT TIMES, COMLIANT WITH MEDS, MAKES NEEDS KNOWN, HOLDS HEAD DOWN A LOT. NO ADVERSE REACTION NOTED. WILL FOLLOW POC
[2018-10-30 08:39] VITALS: BP 133/80
--- NOTE | 2018-10-30 10:00 | NUR ---
RECEIVED PATIENT IN DINING ROOM FOR B'FAST, ALERT, CALM, COOPERATIVE. MEDS ADMIN PER ORDERS WITH COMPLETE MED COMPLIANCE NOTED. COOPERATIVE WITH GROUP AND STAFF REQUESTS. CONT POC INCLUDING MEDS AND GROUP THERAPY DIRECTED.
[2018-10-30 20:57] VITALS: BP 150/77
--- NOTE | 2018-10-31 03:42 | NUR ---
PATIENT IS QUIET AT TIMES, SEEMS TO BE "THINKING" AND TO HIMSELF SOMETIMES HOWEVER HE PROMPTLY RESPONDS WHEN SPOKEN TO, COMPLIANT WITH MEDS, NO ADVERSE REACTION NOTED. WILL FOLLOW POC
--- NOTE | 2018-10-31 10:06 | NUR ---
RECEIVED PATIENT IN DINING ROOM FOR B'FAST, ALERT, CALM, MILDLY CONFUSED. NO BEHAVIOR ISSUES. MEDS ADMIN PER ORDERS WITH COMPLETE MED COMPLIANCE NOTED. COOPERATIVE WITH GROUP AND STAFF REQUESTS. CONT POC INCLUDING MEDS AND GROUP THERAPY DIRECTED.
[2018-10-31 18:33] LABS: HEMATOCRIT 36.3 % (42.0-54.0); HEMOGLOBIN 11.5 g/dL (13.5-17.5)
[2018-10-31 20:23] VITALS: BP 132/70
[2018-11-01 07:53] VITALS: BP 129/77
--- NOTE | 2018-11-01 13:31 | NUR ---
PT IS QUIET AT TIMES. PT GETS UPSET EASILY. PRESCRIBED MEDS PROVIDED. MED COMPLIANT. WILL CPOC.
--- NOTE | 2018-11-01 14:42 | NUR ---
Nutrition follow-up: Diet: ADA consistent CHO PO intake 75-100% of meals Labs reviewed No new wt to assess +BM PO intake is good at this time RDN following.
[2018-11-01 22:18] VITALS: BP 134/70
--- NOTE | 2018-11-02 00:44 | NUR ---
PATIENT IS AGITATED AT TIMES, DOES NOT LIKE TO DO THINGS FOR HIMSELF. AAOX4. COMPLIANT WITH MEDS. NO ADVERSE REACTION NOTED. WILL FOLLOW POC
[2018-11-02 08:47] VITALS: BP 127/81
[2018-11-02] MEDS ORDERED: TAMIFLU75 MG PO (16:14)
[2018-11-02] MEDS ORDERED: ALBUTEROL1.25 MG/3 UPD (16:15)
[2018-11-02] MEDS ORDERED: LEXAPRO20 MG PO (16:16)
[2018-11-02] MEDS ORDERED: NAMENDA5 MG PO (16:17)
--- NOTE | 2018-11-02 16:22 | PN ---
PATIENT:BURKE PEREZ MEDICAL RECORD: [id number] LOCATION:[facility] ADMISSION DATE: 10/19/18 PROGRESS NOTE DATE OF SERVICE: 11/01/2018 SUBJECTIVE: Mr. Perez is a 72-year-old male who originally came in for SI. He denies it now. Apparently, there has been confusion on PT and OT. His control operator and his DPOA say that they are trying to set him up with his original control operator as he does not seem to be suited for rehab at this point. He is eating 75%/100%/100%, slept 7-1/2 hours, and last bowel movement on . LATEST VITAL SIGNS: Temperature 98.6, pulse 87, respirations 18, blood pressure 129/77, and saturation 98%. ASSESSMENT: Unchanged. PLAN: Anticipate discharge as soon as at home care is lined up and available. Case discussed with nursing. Case discussed with treatment team. Chart was reviewed and the patient interviewed. TRANSINT:[id number] Voice Confirmation ID: [id number] DOCUMENT ID: [id number] SAMUEL BYERS MD at 1622 CC: [id number] DICTATION DATE: 11/01/18 1344 TRAILER SECTIONS ASSEMBLER: 11/01/18 1423 ADM IN [place] [id number] [place] [address]
--- NOTE | 2018-11-02 16:22 | PN ---
PATIENT:BURKE PEREZ MEDICAL RECORD: [id number] LOCATION:[facility] ADMISSION DATE: 10/19/18 PROGRESS NOTE DATE OF SERVICE: 10/30/2018 SUBJECTIVE: Mr. Perez is a 72-year-old male who was at [facility], doing PT and OT, status post CVA. He reported SI to a physical therapist there and was brought here. The patient's interview was seemingly together but the longer he interviews, his thoughts start derailing. He has nonlogical pattern. When asked about PT, he started talking about being in [place] and it became increasingly hard to follow his thought process. He denies SI now; but according to nurses, requires much care and placement is being considered. He is 75%, 100%, and 100%. Last bowel movement on October 29. Last blood sugar at 7:00 a.m. of 89. He slept 8.25 hours. LATEST VITAL SIGNS: Temperature 98.1, pulse 86, respirations 20, blood pressure 133/80, and saturation 94%. ASSESSMENT: Unchanged. PLAN: Continue to monitor for SI. Continue current treatment plan including helping find the most appropriate placement for this gentleman. TRANSINT:[id number] Voice Confirmation ID: [id number] DOCUMENT ID: [id number] SAMUEL BYERS MD at 1622 CC: [id number] DICTATION DATE: 10/30/18 1446 STAFF ENGINEER: 10/30/182019 ADM IN [place] [id number] [place] [id number]
--- NOTE | 2018-11-02 16:31 | NUR ---
PT IS AWAKE AND ALERT AND ORIENTED X 4. PT BECOMES UPSET EASILY. DOES NOT LIKE STAFF TO HELP WITH [facility]. REDIRECT AND REORIENT NEEDED. MED COMPLIANT. NO SI NOTED OR VOICED. DENIES ANY THOUGHTS OF SELF HARM. WILL CONTINUE TO MONITOR Q 15 MINUTES FOR SAFETY. WILL CPOC.
[2018-11-02 19:49] VITALS: BP 131/73
--- NOTE | 2018-11-03 04:50 | NUR ---
B) Patient is alert and oriented to person, place and time, calm and cooperative this shift, no S.I. I) Administered scheduled medications as ordered, monitored for safety R) Medication compliant, grumpy at times, follows instructions, P) Continue plan of care.
[2018-11-03 08:12] VITALS: BP 149/77
--- NOTE | 2018-11-03 14:00 | NUR ---
PT DISCHARGED HOME WITH CAREGIVER. CAREGIVER PRESENT. ALL DISCHARGE PAPERWORK DISCUSSED AND COPY SENT WITH CAREGIVER. MEDS CALLED INTO [facility] PER REQUEST. ALL MEDS REVIEWED AND DISCUSSED WITH CAREGIVER. CAREGIVER STATED " I LEAVE HERE GO GET MEDS, IF LESS THAN $100.00 I WILL IS MANAGER, OVER $100.[address] TO [place] TO PICKUP." THE IMPORTANCE OF PICKING UP MEDS FOR PT. EXPLAINED. CAREGIVER STATES," I UNDERSTAND." NO S/SX OF DISTRESS NOTED AT TIME OF DISCHARGE.
--- NOTE | 2018-11-03 14:39 | NUR ---
PT IS AWAKE AND ALERT. CALM AMD COOPERATIVE WITH ASSESSMENT. DENIES ANY FEELINGS OR THOUGHTS OF SELF HARM AT THIS TIME. REDIRECT AND REORIENT NEEDED. MED COMPLIANT. WILL CPOC.
--- NOTE | 2018-11-06 12:52 | DS ---
PATIENT:BURKE PEREZ :49 MEDICAL RECORD: [id number] DISCHARGE SUMMARY ADMISSION DATE: 10/19/18 DISCHARGE DATE: 11/03/18 HOSPITAL COURSE: Mr. Perez is a 72-year-old male who was admitted secondary to suicidal ideation and memory deficits and refusing to participate in PT and OT. Throughout the course of the admission, the patient has minimized any suicidal ideation. He has appeared confused, continues to state that one of his options is going back to work when he is clearly physically and cognitively unprepared to do so. He, on the day of discharge, has not suicidal or homicidal ideation, auditory or visual hallucinations or delusions. 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 DISCHARGE MEDICATIONS: Include one day of Tamiflu, Namenda 5 mg b.i.d., Robitussin-DM 5 mL q. 6 hours p.r.n., Megace 40 mg b.i.d., Proventil inhaler 1.25 mg t.i.d. updraft, Lexapro 20 mg daily, insulin sliding scale, Lipitor 40 mg q.h.s., Glucophage 1000 mg b.i.d., Glucotrol 10 mg b.i.d. a.c., metoprolol 25 mg b.i.d., Keppra 1000 mg b.i.d., Carola 60 mg daily, Pepcid 20 mg daily, Norvasc 10 mg daily. DISCHARGE MENTAL STATUS: This is a 72-year-old male, dressed and groomed appropriately. Cooperative with the interview. His only complaint was some diarrhea this morning. He denies suicidal or homicidal ideation, auditory or visual hallucinations, or delusions. Case was discussed with treatment team, chart reviewed, and the patient interviewed. His follow up is with [facility], who did come to pick him up and he also has home health. TRANSINT:[id number] Voice Confirmation ID: [id number] DOCUMENT ID: [id number] SAMUEL BYERS MD at 1252 CC: [id number] DICTATION DATE: 11/03/18 1357 ELEMENTARY SCHOOL MUSIC TEACHER: 11/04/18 0200 DIS IN 11/03/18 [facility] [address] [place] [id number]
--- NOTE | 2018-11-06 12:52 | PN ---
PATIENT:BURKE PEREZ MEDICAL RECORD: [id number] LOCATION:[facility] ADMISSION DATE: 10/19/18 PROGRESS NOTE DATE OF SERVICE: 11/02/2018 SUBJECTIVE: Mr. Perez is a 72-year-old male who was admitted secondary to suicidal ideation, the patient has denied for some time now, been working out discharge disposition as he is unable to care for self. Apparently, the patient wishes to go back with his [place] personal care advisor and with supplemental services being added by a visual artist here. The patient seems to be somewhat unrealistic about what he can do stating he thinks he can go back to work. He is anxious to leave and go back home. He is eating 175 and 100%. Last bowel movement was on . His blood sugar 119 and slept 9.75 hours. OBJECTIVE: VITAL SIGNS: 98.1, 105, 20, 127/81, and 95%. ASSESSMENT: Unchanged. PLAN: Anticipate discharge tomorrow for home with follow up with [facility] personal care advisor and other services. Case discussed with nursing. Chart was reviewed and the patient interviewed. TRANSINT:[id number] Voice Confirmation ID: [id number] DOCUMENT ID: [id number] SAMUEL BYERS MD at 1252 CC: [id number] DICTATION DATE: 11/02/181751 TRIAL MGR: 11/02/18 2333 DIS IN 11/03/18 [place] [id number] [place] [address]
--- NOTE | 2018-11-08 13:16 | PN ---
PATIENT:BURKE GILL MEDICAL RECORD: [id number] LOCATION:[facility] ADMISSION DATE: 10/19/18 PROGRESS NOTE DATE OF SERVICE: 10/29/2018 SUBJECTIVE: The patient's case was discussed with staff. He has no new complaint. OBJECTIVE: The patient is in good behavioral control. He has poor insight about his condition. ASSESSMENT: 1. Vascular dementia. 2. Major depression. PLAN: Current medicines will be maintained. custodial placement is being sought. His behaviors have been good. He is eating well. He is sleeping reasonably well. TRANSINT:[id number] Voice Confirmation ID: [id number] DOCUMENT ID: [id number] VALENTE OLIVARES MD at 1316 CC: [id number] DICTATION DATE: 10/29/18 1345 DELIMER: 10/29/18 1429 DIS IN 11/03/18 [place] [id number] [place] [address]
== END 2018-11-03 15:00 | disposition home or self-care (01) | DRG 57 ==
LOC: D.PSYCH 20:00
PROVIDERS: Family Medicine; ADMIT Psychiatry & Neurology Psychiatry; ATTEND Psychiatry & Neurology Psychiatry
DX: I69.319 Unspecified symptoms and signs involving cognitive functions following cerebral infarction (principal); F33.0 Major depressive disorder, recurrent, mild; R45.851 Suicidal ideations; N39.0 Urinary tract infection, site not specified; F01.50 Vascular dementia, unspecified severity, without behavioral disturbance, psychotic disturbance, mood disturbance, and anxiety; E11.9 Type 2 diabetes mellitus without complications; I10 Essential (primary) hypertension; E78.5 Hyperlipidemia, unspecified; D64.9 Anemia, unspecified; N40.0 Benign prostatic hyperplasia without lower urinary tract symptoms; G40.909 Epilepsy, unspecified, not intractable, without status epilepticus; R26.9 Unspecified abnormalities of gait and mobility